=== PATIENT | male | born 1940 | race Caucasian/White ===

== ENCOUNTER 2021-09-21 21:28 | Inpatient (IN) | payer MEDICARE, BC, SELFPAY ==
--- NOTE | ~2021-09-21 | XR_ITS ---
EXAMINATION: XR chest 1V portable INDICATION: Weakness and diaphoresis TECHNIQUE: Portable AP chest at 2150 hours COMPARISON: None available FINDINGS: There are minimal airspace opacities of the lung bases. No pleural effusion or pneumothorax . The cardiomediastinal silhouette is normal. 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 IMPRESSION: 1. Minimal airspace opacities of the lung bases, likely atelectasis. Reviewed, dictated and finalized at location F.
--- NOTE | ~2021-09-21 | CT_ITS ---
EXAMINATION: CT abdomen pelvis wo con DATE: 09/22/2021 08:40 INDICATION: Generalized abdominal pain, vomiting TECHNIQUE: Computed tomography (CT) of the abdomen and pelvis was performed without intravenous contr ast. Automated exposure control and iterative reconstruction technique were employed. Exam dose: 648 .28 mGy-cm total exam DLP. COMPARISON: None. FINDINGS: Bilateral lower lobe and lingular discoid atelectasis and/or scarring. Heart size is within normal range. No pericardial or pleural effusion. Small sliding hiatal hernia. The liver, gallbladder, bile ducts, pancreas, pancreatic duct and spleen are unremarkable. Normal morphology of the adrenal glands. Approximately 2 cm upper pole right renal cyst, 2.6 cm lower pole right renal cyst. Additional renal cysts or masses are not excluded on this limited noncontrast examination. There is atherosclerotic calcification but normal caliber of the abdominal aorta and iliac arteries. No intraperitoneal or retroperitoneal or pelvic mass lesion or adenopathy or ascites. Normal appendix. Diverticulosis of left and right colon; no CT evidence of diverticulitis. No bowel obstruction or int raperitoneal free air. Moderate prostate enlargement. The urinary bladder is unremarkable. Fat-containing umbilical hernia. Diffuse idiopathic skeletal hyperostosis of the thoracic spine. There is degenerative change at the apophyseal joints with associated grade 1 anterolisthesis at L4-5 . No suspicious osteolytic or osteoblastic lesions. Bilateral hip osteoarthritis. IMPRESSION: Diverticulosis of left and right colon; no CT evidence of diverticulitis Normal appendix Small sliding hiatal hernia Right renal cysts Reviewed, dictated and finalized at Location [facility]. Reviewed, dictated and finalized at location B. IMPRESSION: Diverticulosis of left and right colon; no CT evidence of divertic ulitis Normal appendix Small sliding hiatal hernia Right renal cysts
[2021-09-21 21:35] VITALS: BP 157/84; PULSE 61; RESP 20; TEMP 36; O2SAT 98
--- NOTE | 2021-09-21 21:42 | ECG_ITS ---
Measurements Intervals [place] Rate: 67 P: 65 OK: 191 QRS: -6 QRSD: 92 T: 41 QT: 433 QTc: 459 Interpretive Statements SINUS RHYTHM BORDERLINE ST ABNORMALITY- ANTERIOR LEADS BASELINE ARTIFACT- I, II, III, AVR, AVL, AVF, V1-V6 BORDERLINE ECG Electronically Signed On 09-22-2021 6:39:24 CDT by Fracisco Anne D.O.
[2021-09-21] MEDS: ONDANSETRON INJ 4 MG/2 ML VIAL IV PUSH (21:49)
[2021-09-21] MEDS: SODIUM CHLORIDE 0.9% IV 1,000 ML 999 ML IV CONT (21:55)
[2021-09-21 22:08] LABS: Basophils Absolute Auto 0.02 K/mm3 (0.00-0.10); Basophils Percent Auto 0.3 % (0.0-1.0); Eosinophils Absolute Auto 0.06 K/mm3 (0.02-0.50); Eosinophils Percent Auto 0.9 % (1.0-6.0); Hematocrit 44.5 % (37.0-46.0); Hemoglobin 15.3 g/dL (12.4-15.3); Immature Granulocyte Absolute 0.02 K/mm3 (0.00-0.00); Immature Granulocyte Percent A 0.3 % (0.0-0.0); Immature Platelet Fraction Pct 3.2 % (1.0-7.0); Lymphocytes Absolute Auto 1.35 K/mm3 (1.10-4.50); Lymphocytes Percent Auto 20.5 % (18.0-42.0); Mean Corpuscular HGB Conc 34.4 g/dL (32.0-36.0); Mean Corpuscular Hemoglobin 34.4 pg (27.0-31.0); Monocytes Absolute Auto 0.35 K/mm3 (0.10-0.90); Monocytes Percent Auto 5.3 % (2.0-11.0); Neutrophils Absolute Auto 4.8 K/mm3 (1.7-7.2); Neutrophils Percent Auto 72.7 % (50.0-70.0); Platelet Count Result 177 K/mm3 (150-420); Red Blood Count 4.45 M/mm3 (4.70-6.10); Red Cell Distribution Width 12.8 % (11.6-14.4); White Blood Count 6.6 K/mm3 (4.8-10.8)
[2021-09-21] MEDS: METOCLOPRAMIDE HCL INJ 10 MG/2 ML VIAL IV PUSH ×2 (22:11→23:27)
[2021-09-21 22:39] LABS: Lactic Acid Reflex 2.4 mmol/L (0.4-2.0)
[2021-09-21 22:40] LABS: Alanine Aminotransferase 20 U/L (16-63); Albumin Level 3.7 g/dL (3.4-5.0); Alkaline Phosphatase 67 U/L (46-116); Anion Gap 9 mmol/L (8-16); Aspartate Amino Transferase 20 U/L (15-37); Bilirubin,Total 0.5 mg/dL (0.00-1.00); Blood Urea Nitrogen 15 mg/dL (7-18); CRP < 0.2 mg/dL (0.0-0.9); Calcium 8.4 mg/dL (8.5-10.1); Carbon Dioxide 27 mmol/L (21-32); Chloride 106 mmol/L (98-108); Creatine Kinase 52 U/L (39-308); Estimated CRCL calculation 53 ml/min; Estimated Glomerular Filt Rate > 60; Glucose 148 mg/dL (70-99); Lipase 111 U/L (73-393); NT Pro B Type Natriuretic Pept 55 pg/mL (0-450); Osmolality Calculated 297 mOsm/kg (285-295); Potassium 3.3 mmol/L (3.5-5.1); Sodium 142 mmol/L (136-145)
[2021-09-21 23:16] VITALS: BP 155/86; PULSE 87; RESP 20; O2SAT 98
--- NOTE | 2021-09-21 23:18 | ED.NAVMDI ---
HPI - Nausea/Vomiting/Diarrhea General Chief complaint: Nausea/Vomiting/Diarrhea Stated complaint: AMB Source: patient and EMS Mode of arrival: EMS Limitations: no limitations History of Present Illness HPI Narrative: this is an 81-year-old presents via EMS after he was working outdoors and felt weakness and dehydrated, did go earlier in the afternoon out with his to a [employer] restaurant, and later this evening started to have diaphoresis and nausea with vomiting he denies any chest pain no shortness of breath no abdominal pain no flank pain no dysuria no hematuria there is no fever chills, his vitals are stable blood pressure 155 systolic patient with history of hypertension. MD elicited complaint: nausea, vomiting and other ( weakness) Related Data Home Medications Medication Instructions Recorded Confirmed amlodipine 5 mg tablet 1 tablet PO DAILY 09/21/21 09/21/21 magnesium 500 mg tablet 500 mg PO DAILY 09/21/21 09/21/21 meloxicam 15 mg tablet 1 tablet PO DAILY 09/21/21 09/21/21 omega-3 fatty acids 2,000 mg PO DAILY 09/21/21 09/21/21 omeprazole 20 mg capsule,delayed 1 cap PO DAILY 09/21/21 09/21/21 release simvastatin 40 mg tablet 1 tablet PO DAILY 09/21/21 09/21/21 Allergies Allergy/AdvReac Type Severity Reaction Status Date / Time cephalexin [From Keflex] Allergy Unknown Verified 09/21/21 21:55 clindamycin Allergy Unknown Verified 09/21/21 21:55 loratadine Allergy Unknown Verified 09/21/21 21:55 oxytetracycline Allergy Unknown Verified 09/21/21 21:55 [From Terramycin] Review of Systems Review of Systems: All systems reviewed & are unremarkable except as noted in HPI and below PMFSH Past Medical History Medical History HTN (hypertension) Course Course Emergency Course: labs x-rays reviewed with patient chest x-ray shows some mild basilar opacities and will give the patient ceftriaxone and azithromycin, continue hydration and will continue Reglan patient did receive doses of Zofran. Vital Signs Vital signs: Vital Signs Temperature 36.0 C L 09/21/21 21:35 Pulse Rate 61 09/21/21 21:35 Respiratory Rate 20 09/21/21 21:35 Blood Pressure 157/84 H 09/21/21 21:35 Pulse Oximetry 98 09/21/21 21:35 Oxygen Delivery Room Air 09/21/21 21:35 Temperature 36.0 C L 09/21/21 21:35 Pulse Rate 87 09/21/21 23:16 Respiratory Rate 20 09/21/21 23:16 Blood Pressure 155/86 H 09/21/21 23:16 Pulse Oximetry 98 09/21/21 23:16 Oxygen Delivery Room Air 09/21/21 23:16 MDM - Nausea/Vomiting/Diarrhea Lab Data Result diagrams: 09/21/21 22:02 09/21/21 22:02 Labs: Lab Results 09/21/21 09/21/21 09/21/21 Range/Units 22:02 22:02 22:02 WBC 6.6 (4.8-10.8) K/mm3 RBC 4.45 L (4.70-6.10) M/mm3 Hgb 15.3 (12.4-15.3) g/dL Hct 44.5 (37.0-46.0) % MCV 100.0 (78.0-102.0) fL MCH 34.4 H (27.0-31.0) pg MCHC 34.4 (32.0-36.0) g/dL RDW 12.8 (11.6-14.4) % Plt Count 177 (150-420) K/mm3 MPV 11.0 (8.7-11.0) fl Immature Gran % (Auto) 0.3 H (0.0-0.0) % Neut % (Auto) 72.7 H (50.0-70.0) % Lymph % (Auto) 20.5 (18.0-42.0) % Nolan % (Auto) 5.3 (2.0-11.0) % Eos % (Auto) 0.9 L (1.0-6.0) % Baso % (Auto) 0.3 (0.0-1.0) % Lymph # (Auto) 1.35 (1.10-4.50) K/mm3 Nolan # (Auto) 0.35 (0.10-0.90) K/mm3 Eos # (Auto) 0.06 (0.02-0.50) K/mm3 Baso # (Auto) 0.02 (0.00-0.10) K/mm3 Abs Immat Gran (auto) 0.02 H (0.00-0.00) K/mm3 Absolute Neuts (auto) 4.8 (1.7-7.2) K/mm3 Absolute Nucleated RBC 0.00 (0.00-0.00) K/mm3 Nucleated RBC % 0.0 (0-0.0) % % Immature Plt Fraction 3.2 (1.0-7.0) % Sodium 142 (136-145) mmol/L Potassium 3.3 L (3.5-5.1) mmol/L Chloride 106 (98-108) mmol/L Carbon Dioxide 27 (21-32) mmol/L Anion Gap 9 (8-16) mmol/L BUN 15 (7-18) mg/dL Creatinine 1.08 (0.70-1.30) mg/d
--- NOTE | 2021-09-21 23:23 | PC.NURSE ---
Orders obtained from [facility] for [facility]. Pt started vomiting moderate amt. bile colored emesis at this time. Pt having chills and shakes Pt. reports not feeling well.
[2021-09-21] MEDS: POTASSIUM CHLORIDE 20 MEQ TABLET 40 MEQ PO (23:38)
--- NOTE | 2021-09-21 23:43 | PC.NURSE ---
Call to floor for bed assignment, pt. will go to Rm 203.
[2021-09-21 23:46] LABS: Add Urine Microscopic? NO; Appearance Urine Clear (Clear); Bilirubin Urine Negative (Negative); Blood Urine Negative (Negative); Color Urine Light Yellow (Yellow); Glucose Urine UA Negative (Negative); Ketones Urine Negative (Negative); Leukocyte Esterase Ur Negative (Negative); Nitrate Urine Negative (Negative); Protein Urine Negative (Negative); Specific Grav Ur 1.015 (1.010-1.020); Urobilinogen Urine 0.2 mg/dL (0.2-1.0)
[2021-09-22] VITALS: BP 153/76; PULSE 72; RESP 20; TEMP 36.3
[2021-09-22 00:03] VITALS: BP 161/87; PULSE 78; RESP 18; TEMP 36.3; O2SAT 98
[2021-09-22 00:27] VITALS: BMI 30.7
--- NOTE | 2021-09-22 00:36 | PC.NURSE ---
Patient admitted to room 203 from the ER, is alert and oriented times 3, no c/o pain, oriented to call light and surroundings.
[2021-09-22] MEDS: SODIUM CHLORIDE 0.9% IV 1,000 ML 100 ML IV CONT (01:07)
[2021-09-22 04:00] VITALS: BP 142/66; PULSE 80; RESP 20; TEMP 36.8; O2SAT 96
[2021-09-22] MEDS: METOCLOPRAMIDE HCL INJ 10 MG/2 ML VIAL 5 MG IV PUSH ×2 (05:07→16:33)
--- NOTE | 2021-09-22 05:08 | PC.NURSE ---
Reglan given due to liquid emesis.
[2021-09-22 07:55] VITALS: BP 157/87; PULSE 93; RESP 18; TEMP 37; O2SAT 93
[2021-09-22] MEDS: ONDANSETRON INJ 4 MG/2 ML VIAL IV PUSH (08:10)
[2021-09-22 08:16] LABS: Basophils Absolute Auto 0.01 K/mm3 (0.00-0.10); Basophils Percent Auto 0.1 % (0.0-1.0); Eosinophils Absolute Auto 0.02 K/mm3 (0.02-0.50); Eosinophils Percent Auto 0.2 % (1.0-6.0); Hemoglobin 15.6 g/dL (12.4-15.3); Immature Granulocyte Absolute 0.04 K/mm3 (0.00-0.00); Immature Granulocyte Percent A 0.4 % (0.0-0.0); Lymphocytes Percent Auto 8.9 % (18.0-42.0); Mean Corpuscular HGB Conc 34.7 g/dL (32.0-36.0); Mean Corpuscular Hemoglobin 34.4 pg (27.0-31.0); Mean Corpuscular Volume 99.1 fL (78.0-102.0); Mean Platelet Volume 10.5 fl (8.7-11.0); Monocytes Absolute Auto 0.42 K/mm3 (0.10-0.90); Monocytes Percent Auto 4.7 % (2.0-11.0); Neutrophils Absolute Auto 7.7 K/mm3 (1.7-7.2); Neutrophils Percent Auto 85.7 % (50.0-70.0); Platelet Count Result 202 K/mm3 (150-420); Red Blood Count 4.54 M/mm3 (4.70-6.10); Red Cell Distribution Width 12.8 % (11.6-14.4)
[2021-09-22 08:26] VITALS: O2SAT 93
[2021-09-22 08:32] LABS: Alanine Aminotransferase 21 U/L (16-63); Albumin Level 3.7 g/dL (3.4-5.0); Alkaline Phosphatase 66 U/L (46-116); Anion Gap 8 mmol/L (8-16); Aspartate Amino Transferase 19 U/L (15-37); Bilirubin,Total 0.7 mg/dL (0.00-1.00); Blood Urea Nitrogen 10 mg/dL (7-18); Calcium 8.3 mg/dL (8.5-10.1); Carbon Dioxide 26 mmol/L (21-32); Chloride 107 mmol/L (98-108); Estimated CRCL calculation 65 ml/min; Estimated Glomerular Filt Rate > 60; Glucose 124 mg/dL (70-99); Osmolality Calculated 292 mOsm/kg (285-295); Potassium 3.5 mmol/L (3.5-5.1); Sodium 141 mmol/L (136-145); Total Protein 7.2 g/dL (6.4-8.2)
[2021-09-22 08:37] LABS: Lactic Acid Reflex 1.6 mmol/L (0.4-2.0)
--- NOTE | 2021-09-22 09:46 | PM.IMHP ---
H&P: HPI History of Present Illness Date/Time: 09/22/21 09:46 Chief Complaint: Nausea vomiting Narrative: This is a 81-year-old male who presented to emergency department via EMS after experiencing weakness, nausea and vomiting, dizziness and lightheadedness. Patient has a past medical history of hypertension. According to patient him and his went out to eat [place] food earlier that day later he came home and worked in the garden for about 15 minutes. While he was in the garden he noted that he started to feel dizzy and went and sat in his chair. While he was in his chair he said he experience excessive sweating along with dizziness lightheadedness and nausea and vomiting. Patient notes that his came home and he called EMS to transport him to our emergency department. Patient still continues to experience nausea. According to his his vomiting consisted of full then later a green substance. Patient does complain of slight abdominal discomfort CT completed no acute findings. Patient will remain for an additional day and received IV fluid along with Zofran. Patient afraid to eat his meals encourage patient to eat his meals why he is here at our hospital to see if he can tolerate his meals. WBCs 9.0, hemoglobin 15.6, hematocrit 45.0, platelets 202, sodium 142, potassium 3.3, BUN 15, creatinine 1.08, glucose 148, lactic acid 2.4, liver function test within normal limits UA negative .patient denies SOB, CP, palpitation, extremity numbness, lightheadedness, dizziness, constipation, diarrhea, chills, or fever. Review of Systems Review of Systems: A 14 organ system Review of Systems was performed and pertinent positives included in the HPI, otherwise remaining ROS is negative. [facility] Past Medical History Medical History HTN (hypertension) Social History Social History Smoking status: Former smoker Second hand tobacco smoke exposure: No Alcohol intake: current Substance use: never Spiritual care concerns: No Meds Home Medications and Allergies Home Medications Medication Instructions Recorded Confirmed Type amlodipine 5 mg tablet 1 tablet PO DAILY 09/21/21 09/21/21 History magnesium 500 mg tablet 500 mg PO DAILY 09/21/21 09/21/21 History meloxicam 15 mg tablet 1 tablet PO DAILY 09/21/21 09/21/21 History omega-3 fatty acids 2,000 mg PO DAILY 09/21/21 09/21/21 History omeprazole 20 mg capsule,delayed 1 cap PO DAILY 09/21/21 09/21/21 History release simvastatin 40 mg tablet 1 tablet PO DAILY 09/21/21 09/21/21 History Allergies Allergy/AdvReac Type Severity Reaction Status Date / Time cephalexin [From Keflex] Allergy Unknown Verified 09/21/21 21:55 clindamycin Allergy Unknown Verified 09/21/21 21:55 loratadine Allergy Unknown Verified 09/21/21 21:55 oxytetracycline Allergy Unknown Verified 09/21/21 21:55 [From Terramycin] Vital Signs Vital Signs - 24 hr 09/21/21 21:35 09/21/21 23:16 09/22/21 00:03 Temperature 96.8 F L 97.3 F L Pulse Rate 61 87 78 Respiratory Rate 20 20 18 Blood Pressure 157/84 H 155/86 H 161/87 H Pulse Oximetry 98 98 98 Oxygen Delivery Room Air Room Air Room Air 09/22/21 00:00 09/22/21 04:00 09/22/21 08:26 Temperature 97.3 F L 98.3 F Pulse Rate 72 80 Respiratory Rate 20 20 Blood Pressure 153/76 H 142/66 H Pulse Oximetry 96 93 Oxygen Delivery Room Air Room Air Room Air 09/22/21 07:55 Temperature 98.6 F Pulse Rate 93 Respiratory Rate 18 Blood Pressure 157/87 H Pulse Oximetry 93 Oxygen Delivery Room Air Exam Narrative: GENERAL: This is a well-nourished, well-developed patient, in no apparent distress. Nervous and anxious HEAD: normocephalic, atraumatic. EYES: PERRL. Sclera clear/white. Vision is grossly intact. EARS: External ears normal, auditory canals clear and without drainage, TMs normal without perforation. Hearing gross
--- NOTE | 2021-09-22 11:47 | PC.NURSE ---
1130 patient changed to inpatient status.
[2021-09-22 16:00] VITALS: BP 148/85; PULSE 85; RESP 16; TEMP 37.1; O2SAT 97
--- NOTE | 2021-09-22 23:35 | PC.NURSE ---
Pt dozing quietly and no signs of discomfort noted.
[2021-09-23 02:30] VITALS: BP 144/69; PULSE 60; RESP 18; TEMP 37; O2SAT 98
--- NOTE | 2021-09-23 02:30 | PC.NURSE ---
Pt voided 625 ml of clear, beck urine in urinal.
--- NOTE | 2021-09-23 04:02 | PC.NURSE ---
Pt asleep and no signs of discomfort noted. Side rails up x2 and call miller within reach.
--- NOTE | 2021-09-23 06:02 | PC.NURSE ---
Pt asleep and no signs of discomfort noted.
[2021-09-23 07:45] VITALS: BP 159/76; PULSE 62; RESP 18; TEMP 36.6; O2SAT 97
--- NOTE | 2021-09-23 08:46 | PC.NURSE ---
Patient tolerated clear liquid diet well. Spoke with SPIRITUAL CARE COORDINATOR luis Marx to advance diet to a bland diet.
[2021-09-23] MEDS: MELOXICAM 7.5 MG TABLET 15 MG PO (09:15)
[2021-09-23] MEDS: MAGNESIUM OXIDE 400 MG TABLET PO (09:16)
[2021-09-23] MEDS: amLODIPine BESYLATE 5 MG TABLET PO (09:16)
[2021-09-23] MEDS: PANTOPRAZOLE SOD SESQUIHYDRATE 20 MG TAB PO (09:16)
--- NOTE | 2021-09-23 09:43 | PM.DS ---
DS: Admitting Diagnosis Discharge Date 09/23/2021 Admitting Diagnosis Gastritis DS: Discharge Diagnosis Discharge Diagnosis (1) Nausea & vomiting: Qualifiers: Vomiting type: unspecified Qualified Code(s): R11.2 - Nausea with vomiting, unspecified Code(s): R11.2 - Nausea with vomiting, unspecified Status: Acute Assessment and Plan: Secondary to gastritis Continue Zofran and Reglan CT of the abdomen no acute findings Lactic acid 2.4>1.6 (2) HTN (hypertension): Code(s): I10 - Essential (primary) hypertension Status: Acute Assessment and Plan: BP elevated possibly secondary to anxiety Continue amlodipine Follow-up with primary care physician (3) Gastritis: Code(s): K29.70 - Gastritis, unspecified, without bleeding Status: Acute Assessment and Plan: Possibly secondary to food poisoning Encouraged to stay hydrated Encouraged to eat a low bland diet of weight fried spicy or acidic foods Continue Reglan and Zofran DS: Summary Hospital Course Reason for hospitalization: Nausea and vomiting Hospital Course: This is a 81-year-old male who presented to emergency department via EMS after experiencing weakness, nausea and vomiting, dizziness and lightheadedness.? Patient has a past medical history of hypertension.? According to patient him and his went out to eat [place] food earlier that day later he came home and worked in the garden for about 15 minutes.? While he was in the garden he noted that he started to feel dizzy and went and sat in his chair.? While he was in his chair he said he experience excessive sweating along with dizziness lightheadedness and nausea and vomiting.? Patient notes that his came home and he called EMS to transport him to our emergency department.? Patient still continues to experience nausea.? According to his his vomiting consisted of full then later a green substance.? Patient does complain of slight abdominal discomfort CT completed no acute findings. Today patient has had no vomiting he does admit to some nausea. He would discharge with Zofran Reglan instructed to stay hydrated and take his Zofran 30 minutes before meals. Patient does not complain of abdominal pain and agrees that his condition has improved. The patient denies SOB, CP, palpitation, extremity numbness, lightheadedness, dizziness, constipation, diarrhea, chills, or fever. Time Spent with Patient Time attestation: Total time spent providing and/or coordinating discharge services: Exam Narrative: GENERAL: This is a well-nourished, well-developed patient, in no apparent distress. Nervous and anxious HEAD: normocephalic, atraumatic. EYES: PERRL. Sclera clear/white. Vision is grossly intact. EARS: External ears normal, auditory canals clear and without drainage, TMs normal without perforation. Hearing grossly intact. NOSE: External nose normal with no obvious nasal discharge, nares without redness, no rhinorrhea. THROAT: Mucous membranes moist, posterior pharynx clear. NECK: Neck supple, non-tender without lymphadenopathy, masses or thyromegaly. CARDIOVASCULAR: Regular rate and rhythm without murmurs, gallops, or rubs. RESPIRATORY: Clear to auscultation. Breath sounds equal bilaterally. No wheezes, rales, or rhonchi. GASTROINTESTINAL: Abdomen soft, non-tender, nondistended. Bowel sounds are active. No hepato-splenomegaly, or palpable masses. No guarding. SKIN: warm, intact with no suspicious lesions or rash, good texture and turgor. NEURO: awake, alert, and oriented to person, place and time. There were no obvious focal neurologic abnormalities. Steady gait EXTREMITIES: Normal range of motion. No edema. No calf tenderness. Negative Homans sign bilaterally. BACK: Nontender without deformity or crepitance. No flank tenderness. Discharge Plan Discharge Attending physician on discharge: Franky Chaney Discharging Clinician: Araseli Torres
[2021-09-23] MEDS: METOCLOPRAMIDE HCL INJ 10 MG/2 ML VIAL 5 MG IV PUSH (11:44)
--- NOTE | 2021-09-23 11:45 | PC.NURSE ---
Patient had episode of nausea after drinking white soda. No emesis noted. Patient encouraged to take it slow and take sips instead of drinking fast. Patient states understanding. Reglan give IV per order.
--- NOTE | 2021-09-23 13:35 | PC.NURSE ---
Patient walked from bed to door and back with sba and gait belt. Gait steady. Patient did 'furniture walk' at times grabbing onto second bed and sink. Patient denies any dizziness with standing. States he feels okay walking. Family concerned about patient walking far amounts when he gets home. Family has bedside commode and walker at home for patient to use. Patient tolerated lunch well. Patient being discharged home. All discharge instructions and education reviewed with patient, patients and patients daughter. all parities state understanding. IV site removed, tip intact, dressing applied to site. All questions from family and patient answered at discharge, number provided to call if any further questions. All belongings gathered and sent home with patient. Patient transferred well to wheelchair with 1 assist. Patient accompanied to front door via wheelchair by this nurse. Patient left via private vehicle with .
--- NOTE | 2021-09-28 12:25 | PC.NURSE ---
Follow up call made, spoke with patient, getting a little better each day, did make follow up appointment with doctor, did get instructions and did understand them, Care was good, no complaints
[2021-10-03 08:25] LABS: Glucose Point of Care 146 mg/dl (65-105)
== END 2021-09-23 13:35 | disposition home or self-care (01) | DRG 392 ==
LOC: CHSED 23:27 → CHS2ND 09-22 00:04
PROVIDERS: Nurse Practitioner; Admitting Provider Internal Medicine; Emergency Provider Emergency Medicine; PCP Internal Medicine; Visit Provider Internal Medicine
DX: K29.70 Gastritis, unspecified, without bleeding (principal); I10 Essential (primary) hypertension
CPT/HCPCS: 36415; 71045; 74176; 80053; 81003; 82550; 82948; 83605; 83690; 83880; 85025; 85055; 86140; 87040; 93005; 96361; 96374; 96375; 96376; 97162; 97530; 99285; A9270; G0378; J2405; J2765; J7030